=== PATIENT | male | born 1985 | race Caucasian/White ===

== ENCOUNTER 2018-03-03 09:19 | Outpatient (CLI) | payer OTHER, SELFPAY ==
[2018-03-03 09:55] LABS: Abs Immature Grans 0.01 k/cumm (0.0-0.09); Absolute Basophil Count 0.01 k/cumm (0.0-0.2); Absolute Eosinophil Count 0.07 k/cumm (0.0-0.7); Absolute Lymphocyte Count 2.08 k/cumm (1.2-3.4); Absolute Monocyte Count 0.49 k/cumm (0.11-0.7); Absolute Neutrophil Count 4.64 k/cumm (1.2-6.7); Basophils % 0.1; HCT 43.5 % (40.0-50.0); HGB 14.7 g/dL (13.5-17.5); Immature Grans % 0.1; Lymphocytes % 28.5; Mean Corp. HGB Concentration 33.8 g/dL (32.0-36.0); Mean Corpuscular Hemoglobin 29.7 pg (27.0-33.0); Mean Corpuscular Volume 87.9 fL (80-95); Mean Platelet Volume 10.4 fL (8.0-11.0); Monocytes % 6.7; Neutrophils % 63.6; Platelet Count 225 x1000/uL (130-400); RBC 4.95 m/cumm (4.50-6.00); RBC Distribution Width 13.8 % (11.8-14.1)
[2018-03-03 10:22] LABS: INR 1.1 (1.0-3.5); PTT Activated 24.1 sec (21.0-31.4); Prothrombin Time 10.6 sec (9.3-10.8)
== END 2018-03-03 09:39 ==
PROVIDERS: PCP Internal Medicine; Visit Provider Otolaryngology Otolaryngology/Facial Plastic Surgery
DX: R58 Hemorrhage, not elsewhere classified (principal)
CPT/HCPCS: 36415; 85025; 85610; 85730

== ENCOUNTER 2018-03-24 08:28 | Outpatient (CLI) | payer OTHER, SELFPAY ==
[2018-03-24 08:54] LABS: Abs Immature Grans 0.01 k/cumm (0.0-0.09); Absolute Basophil Count 0.01 k/cumm (0.0-0.2); Absolute Eosinophil Count 0.07 k/cumm (0.0-0.7); Absolute Lymphocyte Count 2.29 k/cumm (1.2-3.4); Absolute Monocyte Count 0.58 k/cumm (0.11-0.7); Absolute Neutrophil Count 4.22 k/cumm (1.2-6.7); Basophils % 0.1; HCT 43.7 % (40.0-50.0); HGB 14.8 g/dL (13.5-17.5); Immature Grans % 0.1; Lymphocytes % 31.9; Mean Corp. HGB Concentration 33.9 g/dL (32.0-36.0); Mean Corpuscular Hemoglobin 29.9 pg (27.0-33.0); Mean Corpuscular Volume 88.3 fL (80-95); Mean Platelet Volume 9.5 fL (8.0-11.0); Monocytes % 8.1; Neutrophils % 58.8; Platelet Count 164 x1000/uL (130-400); RBC 4.95 m/cumm (4.50-6.00); RBC Distribution Width 13.8 % (11.8-14.1); White Blood Cell Count 7.18 k/cumm (4.4-10.8)
[2018-03-24 09:08] LABS: INR 1.1 (1.0-3.5); PTT Activated 23.3 sec (21.0-31.4); Prothrombin Time 10.4 sec (9.3-10.8)
== END 2018-03-24 08:48 ==
PROVIDERS: PCP Internal Medicine; Visit Provider Otolaryngology Otolaryngology/Facial Plastic Surgery
DX: R58 Hemorrhage, not elsewhere classified (principal)
CPT/HCPCS: 36415; 85025; 85610; 85730

== ENCOUNTER → 2019-11-02 09:41 | Outpatient (CLI) | payer OTHER, SELFPAY ==
[2019-11-03 21:06] LABS: COVID-19 RT-PCR UVMMC Result Negative (Negative)
== END ==
PROVIDERS: PCP Internal Medicine; Visit Provider Nurse Practitioner Family
DX: Z11.59 Encounter for screening for other viral diseases (principal)
CPT/HCPCS: U0003

== ENCOUNTER 2020-04-06 14:58 | Outpatient (REF) | payer MEDICAID, SELFPAY ==
[2020-04-11 15:27] LABS: Patient Race White; SARS-CoV-2 RNA Undetected (Undetected); SARS-CoV-2 Specimen Source Nasal
== END 2020-04-06 15:18 ==
LOC: NCHCN 14:58
PROVIDERS: PCP Internal Medicine; Visit Provider Internal Medicine
DX: Z20.828 Contact with and (suspected) exposure to other viral communicable diseases (principal)
CPT/HCPCS: U0003

== ENCOUNTER 2020-07-15 18:31 | Outpatient (REF) | payer MEDICAID, SELFPAY ==
[2020-07-15 20:23] LABS: HCT 45.5 % (40.0-50.0); HGB 15.2 g/dL (13.5-17.5); MCH 29.6 pg (27.0-33.0); MCHC 33.4 % (32.0-36.0); MCV 88.5 fL (80-95); MPV 9.8 fL (8.0-11.0); Platelet Count 199 10^3/uL (130-400); RBC 5.14 10^6/uL (4.36-5.78); RDW 12.4 % (11.8-14.1); RDW-SD 40.6 fL; WBC 7.63 10^3/uL (4.4-10.8)
== END 2020-07-15 18:51 ==
LOC: NCHCN 18:31
PROVIDERS: PCP Internal Medicine; Visit Provider Internal Medicine
DX: R10.32 Left lower quadrant pain (principal)
CPT/HCPCS: 85027

== ENCOUNTER 2020-07-22 03:00 | Outpatient (CLI) | payer MEDICAID, SELFPAY ==
--- NOTE | 2020-07-22 12:00 | DI.CT_ITS ---
EXAM: CT ABDOMEN PELVIS W CLINICAL HISTORY: LLQ ABD PAIN, R10.32. TECHNIQUE: Imaging Protocol: Axial computed tomography images with coronal and sagittal reformatted images were created and reviewed CONTRAST MATERIAL: Intravenous: Omnipaque 100cc Oral: Yes COMPARISON: No exams were available for comparison FINDINGS: VISUALIZED LUNG BASES: No nodules nor pleural effusions evident. ABDOMEN: There is no ascites. LIVER: There is mild hepatic steatosis. There are no discrete focal hepatic lesions no dilatation of intrahepatic ducts. GALLBLADDER/BILIARY: No obvious gallbladder pathology. CBD is not dilated. PANCREAS: No evidence of pancreatic mass nor dilatation of the pancreatic duct. SPLEEN: Spleen is not enlarged. No obvious intrasplenic lesions. Splenic and portal veins are paten t. ADRENALS: There are no significant adrenal masses. KIDNEYS:There is an 8 millimeter cyst in the lateral cortex of the left kidney. No other significant focal renal findings. No solid renal masses. No calculi nor hydronephrosis.. ABDOMINAL AORTA: Abdominal aorta is not enlarged and there is no olmtlwhtkyboxoi-ppmb-[id number] adenopat hy. ABDOMINAL WALL/GI: No evidence of significant anterior abdominal wall hernia. No evidence of small-b owel obstruction. At the level of the sigmoid there is a focal circumferential narrowing noted, poss ibly significant versus peristaltic contraction. This is over a distance of 1.5 cm. There is no adj acent adenopathy in the mesentery. PELVIS: GI: No evidence of appendicitis.No evidence of sigmoid diverticulitis. LYMPH NODES: There is no intrapelvic nor inguinal adenopathy. REPRODUCTIVE: Prostate gland size normal. URINARY BLADDER: No calculi nor obvious masses evident OSSEOUS: No significant osseous lesions. IMPRESSION: 1. Mild hepatic steatosis. Correlation with appropriate blood work recommended. There are no focal hepatic lesions identified nor dilatation of the biliary tree, both intra and extrahepatic. 2. Solitary benign 8 millimeter cyst in the left kidney. No other significant renal findings. 3. Possible lesion versus focal peristalsis in the sigmoid. Recommend follow-up colonoscopy. 4. There is no ascites. RADIATION DOSE DELIVERED: 996.49mGy.cm Total DLP DATA REPOSITORY: All CT scans at this facility are submitted to the National Radiology Data Registry (NRDR) Dose Index Registry (DIR) with the [employer] ([employer]). RADIATION OPTIMIZATION: All CT scans at this facility use at least one of these dose optimization te chniques: automated exposure control; mA and/or kV adjustment per patient size (includes targeted exa ms where dose is matched to clinical indication); or iterative reconstruction.
[2020-07-22] MEDS: Omnipaque 350 MG/ML 50 ML BTL IJ (12:45)
[2020-07-22] MEDS: Breeza Beverage 473 ML BTL PO (12:45)
[2020-07-22] MEDS: Omnipaque 350 MG/ML 100 ML BTL IJ (12:50)
== END 2020-07-22 03:20 ==
PROVIDERS: PCP Internal Medicine; Visit Provider Internal Medicine
DX: R10.32 Left lower quadrant pain (principal); K76.0 Fatty (change of) liver, not elsewhere classified; N28.1 Cyst of kidney, acquired; R93.3 Abnormal findings on diagnostic imaging of other parts of digestive tract
CPT/HCPCS: 74177; J3490; Q9967

== ENCOUNTER 2020-08-18 16:52 | Outpatient (REF) | payer MEDICAID, SELFPAY ==
[2020-08-18 13:59] LABS: Hemoglobin A1C 5.7 % (<5.7)
[2020-08-18 14:14] LABS: ALT 31 U/L (16-63); AST 18 U/L (15-37); Albumin 4.2 g/dL (3.4-5.0); Alkaline Phosphatase 48 U/L (46-116); Anion Gap 8.2 mmol/L (3-11); BUN 18 mg/dL (7-18); Bilirubin, Total 0.6 mg/dL (0.2-1.0); CO2 28.8 mmol/L (21.0-32.0); CREATININE 0.9 mg/dL (0.70-1.30); Calcium 9.5 mg/dL (8.5-10.1); Calculated LDL 48 mg/dL (<100); Chloride 106 mmol/L (98-107); Cholesterol 135 mg/dL (<200); Glucose 91 mg/dL (74-106); HDL Cholesterol 31 mg/dL (40-60); Potassium 4.1 mmol/L (3.5-5.1); Sodium 143 mmol/L (136-145); Total Protein 7.2 g/dL (6.4-8.2); Triglyceride 281 mg/dL (<150)
[2020-08-18 14:45] LABS: Bilirubin, Direct 0.07 mg/dL (0.00-0.20)
== END 2020-08-18 16:53 | disposition home or self-care (01) ==
LOC: NCHCN 16:52
PROVIDERS: PCP Internal Medicine; Visit Provider Internal Medicine
DX: K76.0 Fatty (change of) liver, not elsewhere classified (principal); R10.32 Left lower quadrant pain; Z13.1 Encounter for screening for diabetes mellitus
CPT/HCPCS: 80048; 80061; 80076; 83036

== ENCOUNTER 2020-12-15 14:35 | Outpatient (REF) | payer MEDICAID, SELFPAY ==
[2020-12-15 21:32] LABS: Bilirubin Negative (Negative); Blood Moderate (Negative); Clarity Clear (Clear); Glucose Negative (Negative); Ketones Negative (Negative); Leukocyte Esterase Negative (Negative); Nitrite Negative (Negative); Specific Gravity 1.025 (1.005-1.025); Urobilinogen 0.2 EU/dL (Up TO 0.2); pH 5.5 (5-8)
[2020-12-15 21:38] LABS: WBC Negative HPF (0-5)
[2020-12-15 21:39] LABS: Bacteria Negative HPF (Negative); C & S Indicated? No; Casts Negative LPF (Negative); Crystals Negative HPF (Negative); Epithelial Cells Negative HPF (Negative); Mucus Negative (Negative)
== END 2020-12-15 14:36 | disposition home or self-care (01) ==
LOC: NCHCN 14:35
PROVIDERS: PCP Internal Medicine; Visit Provider Internal Medicine
DX: R31.9 Hematuria, unspecified (principal)
CPT/HCPCS: 81003; 81015

== ENCOUNTER 2021-04-01 16:17 | Emergency (ER) | payer MEDICAID, SELFPAY | END 2021-04-01 16:36 | LOC: ER 16:19 | PROVIDERS: PCP Internal Medicine | DX: R69 Illness, unspecified (principal) ==

== ENCOUNTER 2021-04-01 18:39 | Emergency (ER) | payer MEDICAID, SELFPAY ==
[2021-04-01 18:43] VITALS: BP 130/88; PULSE 82; RESP 14; TEMP 36.5; O2SAT 91
--- NOTE | 2021-04-01 19:13 | W.ED.GENAD ---
Discharge Plan Disposition Patient Disposition: HOME Condition: Stable Discharge Details Clinical Impression: Muscle spasm of back Primary Care Provider: Prasanna Haq ED Provider: Amor Edmondson Home Meds and New Rx's Prescriptions: Continued ibuprofen 600 MG tablet 600 mg PO Q6H PRN (Reason: Pain) Qty: 20 RF: 0 Discharge Instructions Instructions: Muscle Spasm (ED) Additional Instructions: Flexeril as directed, this may cause drowsiness. [id number] Tylenol and/or Motrin as directed for discomfort. Cool and/or warm compresses every 2 hours for 20 minutes. Gentle stretching as tolerated. Please watch for new or worsening symptoms and return to the ER for any concerns. Lastly, I recommend reaching out your primary care provider on Saturday to discuss your ER visit need for outpatient reevaluation. Medical Decision Making This is a 35-year-old male, reports left-sided back spasms that began earlier today, has had similar episodes in the past that responded very well to Flexeril. He is afebrile, neurologically intact. He did drive himself here today plan is to give a single dose of IM Toradol now and provide a take-home pack of Flexeril. Patient is agreeable to this plan and has no additional questions or concerns. Toradol given. Patient given take-home pack of Flexeril. Patient remains neurologically intact. Patient is comfortable discharge at this time. Standard discharge and return precautions provided This documentation was generated using [employer] dictation system, please disregard any oddities of phrase or misspellings. Medical Records Medical records reviewed: Yes I reviewed the patient's medical records. HPI General Mode of arrival: ambulatory. Date/Time Provider Initiated Documentation: 04/01/21 18:55. Limitations to Documentation: no limitations. Information obtained by: patient. HPI Narrative: This is a 35-year-old male, denies significant past medical history, presenting to the ER for left-sided thoracic spasms. 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 He states that he has had spasms like this a few times in the past, and Flexeril has helped him greatly. 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 Patient denies any fever, chest pain, shortness of breath, cough, radiation of pain, abdominal pain, nausea or vomiting, bowel or bladder incontinence, numbness, tingling, weakness in his extremities. Patient states this feels exactly like his previous spasms in the past. He has taken uvjg-ffd-bwrzumm medication with little relief. He reports that the pain is moderate at rest but more significant and spasms with certain movements. Related Data Home Medications Medication Instructions Recorded Confirmed ibuprofen 600 mg PO Q6H PRN #20 tab 06/17/17 04/01/21 Previous Rx's Medication Instructions Recorded ibuprofen 600 mg PO Q6H PRN #20 tab 06/17/17 Allergies Allergy/AdvReac Type Severity Reaction Status Date / Time No Known Allergies Allergy Unverified 04/01/21 18:48 General Stated Complaint: Nk/Back Pain LIZZY: 4 Review of Systems Constitutional Constitutional: Denies fever(s), Denies headache(s) and Denies weakness ENT Ears, Nose, Mouth, and Throat: Denies headache(s) and Denies neck pain Cardiovascular Cardiovascular: Denies chest pain and Denies dyspnea Respiratory Respiratory: Denies cough and Denies dyspnea Gastrointestinal Gastrointestinal: Denies abdominal pain, Denies fecal incontinence, Denies nausea and Denies vomiting Musculoskeletal Musculoskeletal: Reports back pain, Denies muscle weakness, Denies neck pain, Denies numbness and Denies tingling Integumentary/Breasts Skin/Breast: Denies erythema and Denies rash Neurologic Neurologic: Denies headache(s), Denies numbness, Denies tingling and Denies weakness [facility] Social History Smoking/Tobacco Use Status: Never Smoking risk assessment performed?: Yes Alcohol Intake: current Alcohol Intake frequency: holidays/special occasions only Drug use: Never Substance use type: does not use Do you feel safe at home: Yes Do you feel safe in your relationship?: Yes Exam Const General: cooperative, healthy appearing, comfortable and no acute distress Orientation: alert, awake and oriented x3 HENMT Head: normal to inspection, normocephalic and atraumatic Eyes General: appearance normal, both eyes and all related structures Conjunctivae: conjunctivae normal Neck Neck: normal visual inspection, full ROM, trachea midline, supple and nontender Resp Effort & Inspection: normal respiratory effort and able to speak in complete sentences Auscultation: clear to auscultation bilaterally Cardio Rate: regular rate Rhythm: regular rhythm GI Palpation: soft and nontender Back/Spine/Pelvis Back: no CVA tenderness and back tenderness Thoracic/Lumbar Spine: thoraco-lumbar spasm Back/spine/pelvis image: 1. Spasm, discomfort to palpation. There is no bony point tenderness, no midline point tenderness, erythema, warmth, induration or fluctuance. Skin is intact. Skin General skin exam: no rashes or lesions noted Neuro General: patient alert, patient awake, moves all extremities and no focal motor deficits Cognition: normal cognition Speech: speech normal Gait: normal gait Motor: muscle tone normal throughout Sensory Exam: no sensory deficits noted Extrem General: full ROM Psych Appearance: grossly normal Mental Status: mental status grossly normal Course Vital Signs Vital signs: Vital Signs Temperature 36.5 C 04/01/21 18:43 Pulse 82 04/01/21 18:43 Respiratory Rate 14 04/01/21 18:43 Blood Pressure 130/88 04/01/21 18:43 Pulse Oximetry 91 L 04/01/21 18:43 Temperature 36.5 C 04/01/21 18:43 Temperature Source Tympanic 04/01/21 18:43 Pulse 82 04/01/21 18:43 Respiratory Rate 14 04/01/21 18:43 Respiratory Effort Non-Labored 04/01/21 18:47 Blood Pressure 130/88 04/01/21 18:43 Blood Pressure Position Sitting 04/01/21 18:43 Pulse Oximetry 91 L 04/01/21 18:43 Oxygen Delivery Method Room Air 04/01/21 18:43 Oxygen Flow Rate 0 04/01/21 18:43 Pain Level 6 04/01/21 18:43
[2021-04-01] MEDS: Ketorolac 60 MG/2 ML VIAL IM (19:54)
[2021-04-01] MEDS: Cyclobenzaprine 10 MG TAB, 3 TABS/BTL PO (19:56)
== END 2021-04-01 19:55 | disposition home or self-care (01) ==
PROVIDERS: Emergency Provider Physician Assistant; PCP Internal Medicine
DX: M62.830 Muscle spasm of back (principal)
CPT/HCPCS: 96372; 99284; 99283; J1885

== ENCOUNTER 2021-05-01 16:46 | Outpatient (REF) | payer MEDICAID, SELFPAY ==
[2021-05-03 12:28] LABS: COVID-19 RT-PCR UVMMC Result Negative (Negative)
== END 2021-05-01 16:47 | disposition home or self-care (01) ==
LOC: LBN 16:46
PROVIDERS: PCP Internal Medicine; Visit Provider Family Medicine
DX: Z20.822 Contact with and (suspected) exposure to COVID-19 (principal); J06.9 Acute upper respiratory infection, unspecified
CPT/HCPCS: U0003

== ENCOUNTER 2023-03-26 16:03 | Outpatient (REF) | payer MEDICAID, SELFPAY ==
[2023-03-26 21:06] LABS: Abs Immature Grans 0.02 10^3/uL (0.0-0.06); Absolute Basophil Count 0.02 10^3/uL (0.0-0.2); Absolute Eosinophil Count 0.04 10^3/uL (0.0-0.7); Absolute Lymphocyte Count 2.01 10^3/uL (1.2-3.4); Absolute Monocyte Count 0.35 10^3/uL (0.1-0.8); Absolute Neutrophil Count 3.91 10^3/uL (1.2-6.7); Basophils % 0.3; Eosinophils % 0.6; HCT 47.2 % (40.0-50.0); Immature Grans % 0.3; Lymphocytes % 31.7; MCH 29.3 pg (27.0-33.0); MCHC 33.9 % (32.0-36.0); MCV 86 fL (80-95); MPV 10.8 fL (8.0-11.0); Monocytes % 5.5; Neutrophils % 61.6; Platelet Count 197 10^3/uL (130-400); RBC 5.47 10^6/uL (4.36-5.78); RDW 12.6 % (11.8-14.1); RDW-SD 39.8 fL; WBC 6.35 10^3/uL (4.4-10.8)
[2023-03-26 21:26] LABS: Bilirubin Negative (Negative); Blood Small (Negative); Clarity Clear (Clear); Glucose Negative (Negative); Ketones 15 mg/dL (Negative); Leukocyte Esterase Negative (Negative); Nitrite Negative (Negative); Specific Gravity <= 1.005 (1.005-1.025); Urobilinogen 0.2 mg/dL (Up to 0.2); pH 5.5 (5-8)
[2023-03-26 21:31] LABS: ALT 23 U/L (16-63); AST 19 U/L (15-37); Albumin 4.6 g/dL (3.4-5.0); Alkaline Phosphatase 58 U/L (46-116); Anion Gap 13.1 mmol/L (3-11); BUN 15 mg/dL (7-18); Bilirubin, Total 0.5 mg/dL (0.2-1.0); CO2 21.9 mmol/L (21.0-32.0); CREATININE 1.1 mg/dL (0.70-1.30); Calcium 9.9 mg/dL (8.5-10.1); Chloride 103 mmol/L (98-107); Estimated GFR 89.78 (mL/min/1.73m2); Glucose 95 mg/dL (74-106); Potassium 3.9 mmol/L (3.5-5.1); Sodium 138 mmol/L (136-145); Total Protein 7.8 g/dL (6.4-8.2)
[2023-03-26 21:41] LABS: Bacteria Negative HPF (Negative); C & S Indicated? No; Casts Negative LPF (Negative); Crystals Negative HPF (Negative); Epithelial Cells Rare HPF (Negative); Mucus Negative (Negative); RBC 0-2 HPF (0-2); WBC Negative HPF (0-5)
[2023-03-28 12:40] LABS: Hemoglobin A1C 5.5 % (<5.7)
== END 2023-03-26 16:04 | disposition home or self-care (01) ==
LOC: NCHCN 16:03
PROVIDERS: PCP Internal Medicine; Visit Provider Internal Medicine
DX: E88.810 Metabolic syndrome (principal); R31.21 Asymptomatic microscopic hematuria; R79.89 Other specified abnormal findings of blood chemistry; R10.11 Right upper quadrant pain
CPT/HCPCS: 80053; 81003; 81015; 83036; 85025